=== PATIENT | male | born 1995 | race Two or more races ===

== ENCOUNTER 2020-07-02 08:11 | Emergency (ER) | payer OTHER ==
[~2020-07-02] VITALS: Ht 175.3 cm; Wt 104.3 kg
[2020-07-02 08:16] VITALS: BP 161/99
--- NOTE | 2020-07-02 08:19 | NUR ---
ER BED 3 PT BIB [facility] FOR MEDICAL CLEARANCE FOR BOOKING. VS CHECKED. AWAITING MD HUERTA.
[2020-07-02] MEDS ORDERED: TDAP [DIPH/PERTUSSIS/TET] 0.5 ML VIAL IM ONE ×2 (08:30→08:33)
== END 2020-07-02 08:45 ==
LOC: ER 08:19
DX: S00.81XA Abrasion of other part of head, initial encounter (principal); W01.0XXA Fall on same level from slipping, tripping and stumbling without subsequent striking against object, initial encounter; Y93.89 Activity, other specified; Y92.89 Other specified places as the place of occurrence of the external cause; Y99.8 Other external cause status
CPT/HCPCS: 90715